=== PATIENT | female | born 1950 ===

== ENCOUNTER 2017-03-12 06:30 | Day surgery (SDC) | payer MEDICARE, MEDICAID ==
[2017-03-12 07:00] VITALS: BMI 41.5
[2017-03-12] MEDS ORDERED: Bupivacaine HCl 0.25% PF (10 ml) Inj ONE (07:55)
[2017-03-12] MEDS ORDERED: Propofol 10 mg/ml Inj (20 ML) ONE (07:56)
[2017-03-12] MEDS ORDERED: Lactated Ringer's 1,000 ML IV ONE (07:59)
[2017-03-12] MEDS ORDERED: Lidocaine 1% Inj (20ml) IJ ONE (08:06)
[2017-03-12] MEDS ORDERED: methylPREDNISolone Depo 80 mg/ml Inj IM ONE (08:06)
[2017-03-12] MEDS ORDERED: Iohexol 300 10 ML IJ ONE (08:06)
[2017-03-12] MEDS ORDERED: methylPREDNISolone Depo 80 mg/ml Inj ONE (08:12)
[2017-03-12] MEDS ORDERED: Iohexol 300 10 ML ONE (08:12)
[2017-03-12] MEDS ORDERED: Lidocaine 1% Inj (20ml) ONE (08:13)
[2017-03-12] MEDS ORDERED: Lactated Ringer's 1,000 ML IV SCH (08:16)
[2017-03-12] MEDS ORDERED: Lactated Ringer's 500 ML IV SCH (08:30)
[2017-03-12 09:38] VITALS: O2SAT 98
[2017-03-12 09:57] VITALS: RESP 18
[2017-03-12 12:48] VITALS: BP 118/76; PULSE 66; TEMP 97.4
--- NOTE | 2017-03-12 14:50 | OP ---
PROCEDURE DATE: 03/12/2017 PREOPERATIVE DIAGNOSIS: Lumbar radiculopathy. POSTOPERATIVE DIAGNOSIS: Lumbar radiculopathy. PROCEDURE: Caudal epidural under fluoroscopic guidance. COMPLICATIONS: None. EXPECTED BLOOD LOSS: None. SURGEON: Dr. Solares. ANESTHESIOLOGIST: Dr. Xie. TECHNIQUE: After informed consent was obtained, the patient was brought to the OR and placed on the table in prone position. All pressure points were padded and sedation was administered by anesthesia. The lumbosacral spine was prepped with iodine x 3 and draped in normal sterile fashion. X-ray was using AP and lateral views to identify the sacral hiatus. 1 mL of 1% lidocaine with a 25 gauge needle was used to create a skin wheal. A 17-gauge Tuohy epidural needle was advanced under AP and lateral views to marinelli the sacrococcygeal ligament. There was no paresthesia during placement of the needle. After negative aspiration for heme or CSF, 1 mL of Omnipaque 300 contrast was used to delineate the epidural space. After negative aspiration for heme or CSF, 20 mL of 0.5% lidocaine preservative free, and Depo-Medrol was easily instilled into the caudal epidural space. The patient was brought to stage 2 recovery room with bilateral lower extremity motor and sensory intact. She had stable vital signs. 80 mg of Depo-Medrol was used for the case. Edita Solares MD cc: [id number] TT: 03/12/2017 14:49:19 elham SORTO
--- NOTE | 2017-03-12 15:28 | RAD ---
PROCEDURE: Intraoperative Fluoroscopy. HISTORY: PAIN MANAGEMENT FINDINGS: Fluoroscopic assistance was provided for sacral epidural injection.
== END 2017-03-12 12:45 | disposition home or self-care (01) ==
LOC: H.OPSURG 06:30
PROVIDERS: ATTEND Anesthesiology Pain Medicine
DX: M54.16 Radiculopathy, lumbar region (principal); I10 Essential (primary) hypertension; E05.90 Thyrotoxicosis, unspecified without thyrotoxic crisis or storm
CPT/HCPCS: 62322; 82948; J1040; J1885; J2001; J2704; J7120; Q9967

== ENCOUNTER 2017-12-17 10:05 | Emergency (ER) | payer MEDICARE, OTHER ==
[2017-12-17 10:06] VITALS: BMI 41.5
[2017-12-17] MEDS ORDERED: Sodium Chloride 0.9% 1,000 ML IV STA (10:31)
[2017-12-17 11:39] LABS: BASO % 0.3 % (0.0-2.0); EOS # 0.1 K/uL (0.0-0.7); HEMOGLOBIN 14.3 g/dL (12.0-16.0); LYMPH # 0.7 K/uL (1.0-4.3); MEAN CELL VOLUME 87.3 fl (81.0-99.0); MEAN CORPUSCULAR HEMOGLOBIN 29.2 pg (27.0-31.0); MEAN CORPUSCULAR HGB CONC 33.5 g/dL (33.0-37.0); MEAN PLATELET VOLUME 9.1 fl (7.2-11.7); MONO # 0.6 K/uL (0.0-0.8); MONO % 7.7 % (0.0-10.0); NEUT # 6.3 K/uL (1.8-7.0); NRBC % 0.1 % (0.0-0.0); PLATELET COUNT 238 K/uL (130-400); RBC 4.87 Mil/uL (3.80-5.20); RED CELL DISTRIBUTION WIDTH 13.6 % (11.5-14.5); WHITE BLOOD COUNT 7.7 K/uL (4.8-10.8)
[2017-12-17 11:54] LABS: ALB/GLOB RATIO 1.2 (1.0-2.1); ALBUMIN 3.8 g/dL (3.5-5.0); ALT/SGPT 58 U/L (9-52); AST/SGOT 34 U/L (14-36); BLOOD UREA NITROGEN 22 mg/dl (7-17); CALCIUM 9.3 mg/dL (8.4-10.2); GFR AFRICAN-AMERICAN > 60; GFR NON-AFRICAN AMERICAN > 60; LIPASE 29 U/L (23-300)
[2017-12-17 12:09] LABS: BANDS 2 % (0-2); EOSINOPHIL 2 % (0-7); LYMPHOCYTE 7 % (20-50); MONOCYTE 5 % (0-10); NEUTROPHIL 84 % (42-75); PLATELET ESTIMATE NORMAL (NORMAL); TOTAL CELLS COUNTED 100
--- NOTE | 2017-12-17 12:15 | ED PDOC ---
HPI: General Adult Time Seen by Provider: 12/17/17 10:16 Chief Complaint (Nursing): Flu-like Symptoms Chief Complaint (Provider): flu like symptoms, abdominal pain History Per: Patient History/Exam Limitations: no limitations Onset/Duration Of Symptoms: Days (1) Current Symptoms Are (Timing): Still Present Severity: Moderate Additional Complaint(s): 67yo female c/o chills, malaise, headache, R sided abdominal pain, vomiting and diarrhea. Symptoms started yesterday at 1230pm, sudden. Denies receiving flu vaccine. Denies syncope, SOB, rash or urinary symptoms. Past Medical History Reviewed: Historical Data, Nursing Documentation Vital Signs: Last Vital Signs Temp 97.9 F 12/17/17 17:00 Pulse 75 12/17/17 17:00 Resp 14 12/17/17 17:00 BP 126/79 12/17/17 17:00 Pulse Ox 100 12/17/17 17:00 - Medical History PMH: Anxiety, Arthritis, Asthma, Back Problems (herniated disk), Bronchitis, Depression, HTN, Hypercholesterolemia, Hypothyroidism, Kidney Stones, Malignancy (ovarian ca), Migraine, Rheumatoid Arthritis Denies: Chronic Kidney Disease - Surgical History Surgical History: (x1) Other surgeries: hysterectomy/ ovarian ca - Family History Family History: States: Unknown Family Hx - Social History Current smoker - smoking cessation education provided: No - Home Medications Home Medications: Ambulatory Orders Medication Instructions Recorded Atenolol [Tenormin] 50 mg PO DAILY 05/04/15 Hydrochlorothiazide [HCTZ] 25 mg PO DAILY 05/04/15 Levothyroxine Sodium 150 mcg PO DAILY 05/04/15 [Levothyroxine] ALPRAZolam [Xanax] 1 mg PO BID 09/21/15 Ergocalciferol (Vitamin D2) 2,000 iu PO DAILY 09/21/15 [Vitamin D2] Gabapentin [Neurontin] 800 mg PO .4X 09/21/15 Montelukast [Singulair] 10 mg PO HS 09/21/15 Famotidine [Pepcid] 20 mg PO DAILY #10 tab 12/17/15 Albuterol 0.083% [Albuterol 3 ml IH Q8 #1 neb 10/29/16 Sulfate 3 Ml] Albuterol HFA [Ventolin HFA 90 2 puff IH Q4H PRN 03/12/17 mcg/actuation (8 g)] Celecoxib [celeBREX] 200 mg PO BID PRN 03/12/17 Escitalopram [Lexapro] 10 mg PO DAILY 03/12/17 Hydroxychloroquine Sulfate 200 mg PO BID 03/12/17 Omeprazole 40 mg PO DAILY 03/12/17 Tramadol HCl [Ultram] 50 mg PO TID PRN 03/12/17 amLODIPine [Norvasc] 2.5 mg PO DAILY 03/12/17 metFORMIN [glucOPHAGE] 500 mg PO DAILY 03/12/17 traZODone [trazODONE HYDROCHLORIDE] 50 mg PO HS 03/12/17 Ibuprofen [Motrin Tab] 600 mg PO Q6 PRN #15 tab 12/17/17 Oseltamivir [Tamiflu] 75 mg PO BID #10 cap 12/17/17 - Allergies Allergies/Adverse Reactions: Allergies Allergy/AdvReac Type Severity Reaction Status Date / Time shellfish derived Allergy ANAPHYLAXIS Verified 12/17/15 13:50 Review of Systems Constitutional: Positive for: Fever, Chills, Malaise ENT: Negative for: Nose Pain, Throat Pain, Throat Swelling Cardiovascular: Negative for: Chest Pain, Palpitations Respiratory: Positive for: Cough. Negative for: Shortness of Breath Gastrointestinal: Positive for: Nausea, Vomiting, Abdominal Pain Genitourinary Female: Negative for: Dysuria, Hematuria Musculoskeletal: Positive for: Back Pain, Other (myalgias). Negative for: Neck Pain, Arm Pain, Leg Pain Skin: Negative for: Rash, Lesions Neurological: Positive for: Headache, Dizziness. Negative for: Weakness, Numbness Physical Exam - Reviewed Nursing Documentation Reviewed: Yes Vital Signs Reviewed: Yes - Laboratory Results Result Diagrams: 12/17/17 11:29 12/17/17 11:29 - ECG O2 Sat by Pulse Oximetry: 95 - Progress Re-evaluation Time: 15:25 Condition: Improved Medical Decision Making Medical Decision Making: workup for flu like symptoms in setting of multiple medical problems and focal abd pain initiated Time: 1430 CT Abdomen and Pelvis FINDINGS: LOWER THORAX: Small hiatal hernia is appreciate with lung bases otherwise clear. LIVER: Hepatic steatosis is appreciated diffusely throughout the liver without focal mass or intrahepatic biliary dilatation appreciable. GALLBLADDER AND BILE DUCTS: Unremarkable. PANCREAS: Unremarkable. No gross lesion or ductal dilatation. SPLEEN: Unremarkable. ADRENALS: Unremarkable. No mass. KIDNEYS AND URETERS: Tiny lucency seen at the lower pole left kidney too small to characterize with 1 or 2 similar foci seen at the mid to lower pole right kidney as well. Both kidneys are otherwise unremarkable. VASCULATURE: Unremarkable. No aortic aneurysm. BOWEL: The bowel is not appear obstructed. Sigmoid diverticular changes are again identified with the sigmoid colon partially collapsed limiting evaluation of the wall. No pericolic right reaction is appreciated to suggest segmental colitis however the sigmoid colon appears somewhat thick-walled. While this could be a function of collapse, underlying lesion or even limited colitis not completely excluded. Clinically correlate further. APPENDIX: No acute findings related to the appendix. A small appendicular is seen near the tip once again. PERITONEUM: Unremarkable. No free fluid. No free air. LYMPH NODES: Unremarkable. No enlarged lymph nodes. BLADDER: Urinary bladder is collapsed. REPRODUCTIVE: Prior hysterectomy again suggested. BONES: No acute fracture. OTHER FINDINGS: None. IMPRESSION: 1. No CT sign to suggest appendicitis. 2. Hepatic steatosis. 3. Prior hysterectomy again evident. 4. The sigmoid colon is collapsed and colonic diverticular changes are reiterated. This renders evaluation of apparent thickening limited with underlying lesion or even limited colitis not excluded completely, although no pericolic reaction or fluid collection is related. Time: 1525 On reevaluation, patient improved however given age and symptoms, offered observation in hospital. Patient declines stating she feels better and wants to go home to her dogs. Tamiflu started empirically, and discussed risk/benefits of medication with patient. She has an appointment with clinic on Sunday. Will prescribe Motrin for bodyaches and headache. Patient stable for discharge home. Disposition - Clinical Impression Clinical Impression: Influenza-like symptoms, Abdominal pain in female patient - Patient ED Disposition Is Patient to be Admitted: No Counseled Patient/Family Regarding: Studies Performed, Diagnosis, Need For Followup, Rx Given - Disposition Referrals: [facility] [Outside] Disposition: Routine/Home Disposition Time: 15:30 Condition: IMPROVED Additional Instructions: Drink plenty of fluids. Take motrin 600mg every 6hours as needed for pain/headache. Return to ER for any worse or new symptoms. Start tamiflu 75mg 2x daily, next dose tonight. Prescriptions: Ibuprofen [Motrin Tab] 600 mg PO Q6 PRN #15 tab PRN Reason: Pain, Moderate (4-7) Oseltamivir [Tamiflu] 75 mg PO BID #10 cap Instructions: Flu, Adult (DC), Acute Abdomen (Belly Pain), Adult (DC), Headache , Adult (DC) Forms: [facility] (Haitian) Print Language: PORTUGUESE
[2017-12-17] MEDS ORDERED: Sodium Chloride 0.9% 100 ML ONE (13:12)
[2017-12-17] MEDS ORDERED: Iohexol 300 100 ML IJ ONE (13:12)
--- NOTE | 2017-12-17 14:22 | CT ---
PROCEDURE: CT Abdomen and Pelvis with contrast HISTORY: RLQ pain, vomiting, also hx ovarian cancer COMPARISON: Unenhanced abdomen pelvis CT examination 03/06/2015. TECHNIQUE: Contrast dose: Omnipaque 300, 95 cc Radiation dose: Total exam DLP = 1033.26 mGy-cm. This CT exam was performed using one or more of the following dose reduction techniques: Automated exposure control, adjustment of the mA and/or kV according to patient size, and/or use of iterative reconstruction technique. FINDINGS: LOWER THORAX: Small hiatal hernia is appreciate with lung bases otherwise clear. LIVER: Hepatic steatosis is appreciated diffusely throughout the liver without focal mass or intrahepatic biliary dilatation appreciable. GALLBLADDER AND BILE DUCTS: Unremarkable. PANCREAS: Unremarkable. No gross lesion or ductal dilatation. SPLEEN: Unremarkable. ADRENALS: Unremarkable. No mass. KIDNEYS AND URETERS: Tiny lucency seen at the lower pole left kidney too small to characterize with 1 or 2 similar foci seen at the mid to lower pole right kidney as well. Both kidneys are otherwise unremarkable. VASCULATURE: Unremarkable. No aortic aneurysm. BOWEL: The bowel is not appear obstructed. Sigmoid diverticular changes are again identified with the sigmoid colon partially collapsed limiting evaluation of the wall. No pericolic right reaction is appreciated to suggest segmental colitis however the sigmoid colon appears somewhat thick-walled. While this could be a function of collapse, underlying lesion or even limited colitis not completely excluded. Clinically correlate further. APPENDIX: No acute findings related to the appendix. A small appendicular is seen near the tip once again. PERITONEUM: Unremarkable. No free fluid. No free air. LYMPH NODES: Unremarkable. No enlarged lymph nodes. BLADDER: Urinary bladder is collapsed. REPRODUCTIVE: Prior hysterectomy again suggested. BONES: No acute fracture. OTHER FINDINGS: None. IMPRESSION: 1. No CT sign to suggest appendicitis. 2. Hepatic steatosis. 3. Prior hysterectomy again evident. 4. The sigmoid colon is collapsed and colonic diverticular changes are reiterated. This renders evaluation of apparent thickening limited with underlying lesion or even limited colitis not excluded completely, although no pericolic reaction or fluid collection is related.
[2017-12-17 17:34] VITALS: BP 126/79; PULSE 75; RESP 14; TEMP 97.9
[2017-12-19 14:23] VITALS: O2SAT 95
== END 2017-12-17 17:27 | disposition home or self-care (01) ==
LOC: H.ER 10:05
DX: J11.1 Influenza due to unidentified influenza virus with other respiratory manifestations (principal); E03.9 Hypothyroidism, unspecified; E78.00 Pure hypercholesterolemia, unspecified; F32.9 Major depressive disorder, single episode, unspecified; F41.9 Anxiety disorder, unspecified; I10 Essential (primary) hypertension; Z79.84 Long term (current) use of oral hypoglycemic drugs; Z85.43 Personal history of malignant neoplasm of ovary
CPT/HCPCS: 74177; 80053; 82948; 83690; 84484; 85025; 87804; 96374; 99283; J1885; J7040; Q9967

== ENCOUNTER 2018-03-25 12:00 | Emergency (ER) | payer MEDICARE, MEDICAID ==
[2018-03-25 12:09] VITALS: BMI 40.2
[2018-03-25] MEDS ORDERED: Albuterol-Ipratrop 3 mg / 0.5 (3 ml) UD INH STA (12:51)
--- NOTE | 2018-03-25 13:07 | ED PDOC ---
HPI: General Adult Time Seen by Provider: 03/25/18 12:23 Chief Complaint (Nursing): Chest Pain Chief Complaint (Provider): ABRAHAM, wheezing History Per: Patient History/Exam Limitations: no limitations Additional Complaint(s): Pt presents with multiple complaints. Pt c/o generalized ABRAHAM c/w her usual migraines. Also c/o having "cold" X 2 weeks, with cough and wheezing, last used Albuterol this AM, midsternal chest and back pain with cough and movement. Denies fever, nausea, vomiting, abdominal pain. Past Medical History Reviewed: Nursing Documentation, Vital Signs Vital Signs: Last Vital Signs Temp 97 F L 03/25/18 18:18 Pulse 78 03/25/18 18:18 Resp 19 03/25/18 18:18 BP 126/78 03/25/18 18:18 Pulse Ox 98 03/25/18 18:18 - Medical History PMH: Anxiety, Arthritis, Asthma, Back Problems (herniated disk), Bronchitis, Depression, HTN, Hypercholesterolemia, Hypothyroidism, Kidney Stones, Malignancy (ovarian ca), Migraine, Rheumatoid Arthritis Denies: Chronic Kidney Disease - Surgical History Surgical History: (x1) - Family History Family History: States: Unknown Family Hx - Living Arrangements Living Arrangements: With Family - Social History Current smoker - smoking cessation education provided: No - Home Medications Home Medications: Ambulatory Orders Medication Instructions Recorded Atenolol [Tenormin] 50 mg PO DAILY 05/04/15 Hydrochlorothiazide [HCTZ] 25 mg PO DAILY 05/04/15 Levothyroxine Sodium 150 mcg PO DAILY 05/04/15 [Levothyroxine] ALPRAZolam [Xanax] 1 mg PO BID 09/21/15 Ergocalciferol (Vitamin D2) 2,000 iu PO DAILY 09/21/15 [Vitamin D2] Gabapentin [Neurontin] 800 mg PO .4X 09/21/15 Montelukast [Singulair] 10 mg PO HS 09/21/15 Famotidine [Pepcid] 20 mg PO DAILY #10 tab 12/17/15 Albuterol 0.083% [Albuterol 3 ml IH Q8 #1 neb 10/29/16 Sulfate 3 Ml] Albuterol HFA [Ventolin HFA 90 2 puff IH Q4H PRN 03/12/17 mcg/actuation (8 g)] Celecoxib [celeBREX] 200 mg PO BID PRN 03/12/17 Escitalopram [Lexapro] 10 mg PO DAILY 03/12/17 Hydroxychloroquine Sulfate 200 mg PO BID 03/12/17 Omeprazole 40 mg PO DAILY 03/12/17 Tramadol HCl [Ultram] 50 mg PO TID PRN 03/12/17 amLODIPine [Norvasc] 2.5 mg PO DAILY 03/12/17 metFORMIN [glucOPHAGE] 500 mg PO DAILY 03/12/17 traZODone [trazODONE HYDROCHLORIDE] 50 mg PO HS 03/12/17 Ibuprofen [Motrin Tab] 600 mg PO Q6 PRN #15 tab 12/17/17 Oseltamivir [Tamiflu] 75 mg PO BID #10 cap 12/17/17 Albuterol HFA [Ventolin HFA 90 2 puff IH [id number] PRN #1 bottle 03/25/18 mcg/actuation (8 g)] Naproxen [Naprosyn] 500 mg PO BID PRN #15 tablet 03/25/18 Nitrofurantoin Macrocrystals 100 mg PO BID #13 cap 03/25/18 [Macrobid] Prednisone 50 mg PO DAILY #4 tab 03/25/18 - Allergies Allergies/Adverse Reactions: Allergies Allergy/AdvReac Type Severity Reaction Status Date / Time shellfish derived Allergy ANAPHYLAXIS Verified 12/17/15 13:50 Review of Systems Constitutional: Negative for: Fever, Chills Cardiovascular: Positive for: Chest Pain (Pleuritic). Negative for: Palpitations Respiratory: Positive for: Cough, Shortness of Breath, Pleuritic Pain, Wheezing. Negative for: Hemoptysis, SOB with Exertion, Sputum Gastrointestinal: Negative for: Nausea, Vomiting, Abdominal Pain, Diarrhea Genitourinary Female: Negative for: Dysuria, Hematuria Musculoskeletal: Positive for: Back Pain. Negative for: Neck Pain Skin: Negative for: Rash, Lesions Neurological: Positive for: Headache. Negative for: Weakness, Numbness, Incoordination, Change in Speech, Confusion, Seizures, Altered Mental Status, Dizziness Physical Exam - Reviewed Nursing Documentation Reviewed: Yes Vital Signs Reviewed: Yes - Physical Exam Appears: Positive for: Well, No Acute Distress (Speaking full sentences) Head Exam: Positive for: ATRAUMATIC, NORMAL INSPECTION Skin: Positive for: Normal Color, Warm, Dry Eye Exam: Positive for: Normal appearance, EOMI, PERRL Neck: Positive for: Normal, Painless ROM, Supple Cardiovascular/Chest: Positive for: Regular Rate, Rhythm. Negative for: Chest Non Tender (TTP midsternum) Respiratory: Positive for: Wheezing. Negative for: Decreased Breath Sounds, Accessory Muscle Use, Crackles, Rales, Rhonchi, Respiratory Distress Back: Positive for: Normal Inspection. 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 Negative for: Motor/Sensory Deficits, Facial Droop - Laboratory Results Result Diagrams: 03/25/18 13:35 03/25/18 13:35 - ECG O2 Sat by Pulse Oximetry: 97 Medical Decision Making Medical Decision Makin yo with migraine and wheezing. - labs - EKG - CXR - Albuterol/atrovent nebs - Solumedrol Accession No. : [id number] Patient Name / ID : CRISTI Perez / [id number] Exam Date : 03/25/2018 13:12:18 ( Approved ) Study Comment : Sex / Age : F / 68Y Creator : Richard Washington MD Dictator : Richard Washington MD [employer] Ambassador : Gill Box Operator : Richard Washington MD Approver2 : Report Date : 03/25/2018 14:47:32 My Comment : HISTORY: SOB COMPARISON: 12/28/2016 TECHNIQUE: Chest PA and lateral FINDINGS: LUNGS: No active pulmonary disease. PLEURA: No significant pleural effusion identified. No pneumothorax apparent. CARDIOVASCULAR: No radiographic findings to suggest acute or significant cardiovascular disease. OSSEOUS STRUCTURES: No significant abnormalities. VISUALIZED UPPER ABDOMEN: Normal. OTHER FINDINGS: None. IMPRESSION: No active disease. No significant interval change compared to the prior examination(s). Disposition - Clinical Impression Clinical Impression: UTI (urinary tract infection), Asthma exacerbation - Disposition Referrals: [facility] [place] [Outside] [facility] [Outside] Disposition: Routine/Home Disposition Time: 18:00 Condition: IMPROVED Prescriptions: Albuterol HFA [Ventolin HFA 90 mcg/actuation (8 g)] 2 puff IH [id number] PRN #1 bottle PRN Reason: Shortness Of Breath Naproxen [Naprosyn] 500 mg PO BID PRN #15 tablet PRN Reason: Pain, Moderate (4-7) Nitrofurantoin Macrocrystals [Macrobid] 100 mg PO BID #13 cap Prednisone 50 mg PO DAILY #4 tab Instructions: Urinary Tract Infections in Adults, Asthma in Adults Forms: [email or web address] (Lao)
[2018-03-25] MEDS ORDERED: Albuterol-Ipratrop 3 mg / 0.5 (3 ml) UD ONE (13:39)
[2018-03-25 13:54] LABS: BASO # 0.1 K/uL (0.0-0.2); BASO % 1.2 % (0.0-2.0); EOS # 0.7 K/uL (0.0-0.7); EOS % 6.9 % (0.0-4.0); LYMPH # 2.3 K/uL (1.0-4.3); LYMPH % 23.2 % (20.0-40.0); MEAN CELL VOLUME 87.4 fl (81.0-99.0); MEAN CORPUSCULAR HEMOGLOBIN 28.2 pg (27.0-31.0); MEAN CORPUSCULAR HGB CONC 32.2 g/dL (33.0-37.0); MEAN PLATELET VOLUME 9.8 fl (7.2-11.7); MONO # 0.7 K/uL (0.0-0.8); MONO % 6.8 % (0.0-10.0); NEUT # 6.2 K/uL (1.8-7.0); NEUT % 61.9 % (50.0-75.0); RBC 4.6 Mil/uL (3.80-5.20); RED CELL DISTRIBUTION WIDTH 13.9 % (11.5-14.5)
[2018-03-25 14:04] LABS: SQUAMOUS EPITHIAL 4 /hpf (0-5); URINE BACTERIA RARE (<OCC); URINE BILIRUBIN NEGATIVE (NEGATIVE); URINE BLOOD NEGATIVE (NEGATIVE); URINE CLARITY CLOUDY (Clear); URINE COLOR YELLOW (YELLOW); URINE GLUCOSE (UA) NEG (Normal); URINE LEUKOCYTE ESTERASE LARGE Leu/uL (Negative); URINE PROTEIN NEGATIVE (NEGATIVE); URINE UROBILINOGEN 0.2-1.0 mg/dL (0.2-1.0)
[2018-03-25 14:06] LABS: ALB/GLOB RATIO 1.2 (1.0-2.1); ALBUMIN 4.2 g/dL (3.5-5.0); ALT/SGPT 38 U/L (9-52); AST/SGOT 47 U/L (14-36); BLOOD UREA NITROGEN 16 mg/dl (7-17); GFR AFRICAN-AMERICAN > 60; GFR NON-AFRICAN AMERICAN > 60; PARTIAL THROMBOPLASTIN TIME 25.3 Seconds (25.6-37.1); PROTHROMBIN TIME 10.6 Seconds (9.8-13.1)
--- NOTE | 2018-03-25 14:49 | RAD ---
HISTORY: SOB COMPARISON: 12/28/2016 TECHNIQUE: Chest PA and lateral FINDINGS: LUNGS: No active pulmonary disease. PLEURA: No significant pleural effusion identified. No pneumothorax apparent. CARDIOVASCULAR: No radiographic findings to suggest acute or significant cardiovascular disease. OSSEOUS STRUCTURES: No significant abnormalities. VISUALIZED UPPER ABDOMEN: Normal. OTHER FINDINGS: None. IMPRESSION: No active disease. No significant interval change compared to the prior examination(s).
[2018-03-25 17:29] VITALS: RESP 19
[2018-03-25 18:19] VITALS: BP 126/78; PULSE 78; TEMP 97
--- NOTE | 2018-03-26 11:09 | CARD ---
APPROVED REPORT EKG Measurement Heart [id number] <Conclusion> Normal sinus rhythm Normal ECG
[2018-04-02 10:59] VITALS: O2SAT 97
== END 2018-03-25 18:20 | disposition home or self-care (01) ==
LOC: H.ER 12:00
DX: N39.0 Urinary tract infection, site not specified (principal); J45.901 Unspecified asthma with (acute) exacerbation; I10 Essential (primary) hypertension; Z79.84 Long term (current) use of oral hypoglycemic drugs; Z85.43 Personal history of malignant neoplasm of ovary; Z87.442 Personal history of urinary calculi; E03.9 Hypothyroidism, unspecified; Z86.59 Personal history of other mental and behavioral disorders; M06.9 Rheumatoid arthritis, unspecified; E78.00 Pure hypercholesterolemia, unspecified
CPT/HCPCS: 71046; 80053; 81003; 82948; 84484; 85025; 85610; 85730; 93005; 94640; 96374; 99283; J2930

== ENCOUNTER 2018-05-26 12:19 | Emergency (ER) | payer MEDICARE, OTHER ==
[2018-05-26 12:19] VITALS: BMI 40.2
[2018-05-26 12:39] VITALS: RESP 18
[2018-05-26] MEDS ORDERED: Albuterol-Ipratrop 3 mg / 0.5 (3 ml) UD IH STA ×2 (12:48→12:49)
[2018-05-26 12:49] VITALS: O2SAT 95
--- NOTE | 2018-05-26 12:57 | ED PDOC ---
HPI: SOB/CHF/COPD Time Seen by Provider: 05/26/18 12:39 Chief Complaint (Nursing): Shortness Of Breath Chief Complaint (Provider): Shortness Of Breath History Per: Patient History/Exam Limitations: no limitations Onset/Duration Of Symptoms: Days (14) Additional Complaint(s): 68 years old female with history of asthma presents to the ED for evaluation of shortness of breath, wheezing, productive cough with green sputum, chest tightness and subjective fever onset 2 weeks. PMD: non provided Past Medical History Reviewed: Historical Data, Nursing Documentation, Vital Signs Vital Signs: Last Vital Signs Temp 98.9 F 05/26/18 12:36 Pulse 71 05/26/18 12:45 Resp 18 05/26/18 12:45 BP 123/67 05/26/18 12:45 Pulse Ox 95 05/26/18 13:02 - Medical History PMH: Anxiety, Arthritis, Asthma, Back Problems (herniated disk), Bronchitis, Depression, HTN, Hypercholesterolemia, Hypothyroidism, Kidney Stones, Malignancy (ovarian ca), Migraine, Rheumatoid Arthritis Denies: Chronic Kidney Disease - Surgical History Surgical History: (x1) - Family History Family History: States: Unknown Family Hx - Social History Current smoker - smoking cessation education provided: No Alcohol: None Drugs: Denies - Home Medications Home Medications: Ambulatory Orders Medication Instructions Recorded Atenolol [Tenormin] 50 mg PO DAILY 05/04/15 Hydrochlorothiazide [HCTZ] 25 mg PO DAILY 05/04/15 Levothyroxine Sodium 150 mcg PO DAILY 05/04/15 [Levothyroxine] ALPRAZolam [Xanax] 1 mg PO BID 09/21/15 Ergocalciferol (Vitamin D2) 2,000 iu PO DAILY 09/21/15 [Vitamin D2] Gabapentin [Neurontin] 800 mg PO .4X 09/21/15 Montelukast [Singulair] 10 mg PO HS 09/21/15 Famotidine [Pepcid] 20 mg PO DAILY #10 tab 12/17/15 Albuterol 0.083% [Albuterol 3 ml IH Q8 #1 neb 10/29/16 Sulfate 3 Ml] Albuterol HFA [Ventolin HFA 90 2 puff IH Q4H PRN 03/12/17 mcg/actuation (8 g)] Celecoxib [celeBREX] 200 mg PO BID PRN 03/12/17 Escitalopram [Lexapro] 10 mg PO DAILY 03/12/17 Hydroxychloroquine Sulfate 200 mg PO BID 03/12/17 Omeprazole 40 mg PO DAILY 03/12/17 Tramadol HCl [Ultram] 50 mg PO TID PRN 03/12/17 amLODIPine [Norvasc] 2.5 mg PO DAILY 03/12/17 metFORMIN [glucOPHAGE] 500 mg PO DAILY 03/12/17 traZODone [trazODONE HYDROCHLORIDE] 50 mg PO HS 03/12/17 Ibuprofen [Motrin Tab] 600 mg PO Q6 PRN #15 tab 12/17/17 Oseltamivir [Tamiflu] 75 mg PO BID #10 cap 12/17/17 Albuterol HFA [Ventolin HFA 90 2 puff IH [id number] PRN #1 bottle 03/25/18 mcg/actuation (8 g)] Naproxen [Naprosyn] 500 mg PO BID PRN #15 tablet 03/25/18 Nitrofurantoin Macrocrystals 100 mg PO BID #13 cap 03/25/18 [Macrobid] Prednisone 50 mg PO DAILY #4 tab 03/25/18 Sulfamethoxazole/Trimethoprim 1 tab PO BID #20 tab 05/26/18 [Bactrim DS 800 mg-160 mg] - Allergies Allergies/Adverse Reactions: Allergies Allergy/AdvReac Type Severity Reaction Status Date / Time shellfish derived Allergy ANAPHYLAXIS Verified 12/17/15 13:50 Review of Systems ROS Statement: Except As Marked, All Systems Reviewed And Found Negative Constitutional: Positive for: Fever (subjective) Respiratory: Positive for: Cough, Shortness of Breath, Sputum (green), Wheezing Physical Exam - Reviewed Nursing Documentation Reviewed: Yes Vital Signs Reviewed: Yes - Physical Exam Appears: Positive for: Non-toxic, No Acute Distress Head Exam: Positive for: ATRAUMATIC, NORMOCEPHALIC Cardiovascular/Chest: Positive for: Regular Rate, Rhythm. Negative for: Murmur Respiratory: Positive for: Wheezing (Bilateral expiratory). Negative for: Respiratory Distress Gastrointestinal/Abdominal: Positive for: Normal Exam, Soft. Negative for: Tenderness Extremity: Positive for: Normal ROM. Negative for: Tenderness, Deformity, Swelling Neurologic/Psych: Positive for: Alert, Oriented (x3) - Laboratory Results Result Diagrams: 05/26/18 14:19 05/26/18 14:19 - ECG O2 Sat by Pulse Oximetry: 95 (RA) Pulse Ox Interpretation: Normal - Progress Re-evaluation Time: 14:38 Condition: Improved (wishes to go home) Medical Decision Making Medical Decision Making: Time: 1248 Initial Plan: --CMP --Urine dipstick --CBC --Chest X-Ray --Albuterol 3 ml IH --SOLU-Medrol 125 mg IVP --Peak Flow Pre/Post Tx Scribe Attestation: Documented by Keir Salazar, acting as a scribe for Yobani Cooley MD. Provider Scribe Attestation: All medical record entries made by the Scribe were at my direction and personally dictated by me. I have reviewed the chart and agree that the record accurately reflects my personal performance of the history, physical exam, medical decision making, and the department course for this patient. I have also personally directed, reviewed, and agree with the discharge instructions and disposition. Disposition - Clinical Impression Clinical Impression: Bronchitis, Asthma exacerbation, UTI (urinary tract infection) - Patient ED Disposition Is Patient to be Admitted: No Counseled Patient/Family Regarding: Studies Performed, Diagnosis, Need For Followup, Rx Given - Disposition Referrals: [facility] [Outside] Disposition: Routine/Home Disposition Time: 14:39 Condition: FAIR Prescriptions: Sulfamethoxazole/Trimethoprim [Bactrim DS 800 mg-160 mg] 1 tab PO BID #20 tab Instructions: Asthma, Adult (DC), Acute Bronchitis, Adult (DC), Urinary Tract Infections in Adults Forms: [employer] (Lithuanian)
--- NOTE | 2018-05-26 14:11 | RAD ---
Date of service: 05/26/2018 HISTORY: Cough COMPARISON: Chest 03/25/2018 TECHNIQUE: Chest PA and lateral FINDINGS: LUNGS: Mild bibasilar atelectasis left greater than right ; developing left lower lobe infiltrate could be excluded with followup radiographs. PLEURA: No significant pleural effusion identified. No pneumothorax apparent. CARDIOVASCULAR: Normal. OSSEOUS STRUCTURES: Mild multilevel degenerative spondylosis of the thoracic spine VISUALIZED UPPER ABDOMEN: Normal. OTHER FINDINGS: None. IMPRESSION: Mild bibasilar atelectasis left greater than right; developing left lower lobe infiltrate could be excluded with followup radiographs
[2018-05-26 14:22] LABS: BASO # 0.1 K/uL (0.0-0.2); BASO % 0.9 % (0.0-2.0); EOS # 0.6 K/uL (0.0-0.7); EOS % 7.4 % (0.0-4.0); HEMOGLOBIN 13.2 g/dL (12.0-16.0); LYMPH # 2.1 K/uL (1.0-4.3); LYMPH % 24.4 % (20.0-40.0); MEAN CELL VOLUME 87.6 fl (81.0-99.0); MEAN CORPUSCULAR HEMOGLOBIN 28.5 pg (27.0-31.0); MEAN CORPUSCULAR HGB CONC 32.5 g/dL (33.0-37.0); MEAN PLATELET VOLUME 10.2 fl (7.2-11.7); MONO # 0.7 K/uL (0.0-0.8); MONO % 8.6 % (0.0-10.0); NEUT # 5.1 K/uL (1.8-7.0); NEUT % 58.7 % (50.0-75.0); NRBC % 0.1 % (0.0-0.0); RBC 4.64 Mil/uL (3.80-5.20); RED CELL DISTRIBUTION WIDTH 15.4 % (11.5-14.5); WHITE BLOOD COUNT 8.7 K/uL (4.8-10.8)
[2018-05-26 14:32] LABS: ALB/GLOB RATIO 1.3 (1.0-2.1); ALBUMIN 4.2 g/dL (3.5-5.0); ALT/SGPT 32 U/L (9-52); AST/SGOT 35 U/L (14-36); BLOOD UREA NITROGEN 18 mg/dl (7-17); CALCIUM 10.2 mg/dL (8.4-10.2); GFR NON-AFRICAN AMERICAN > 60
[2018-05-26 14:59] VITALS: BP 120/72; PULSE 69; TEMP 97.7
== END 2018-05-26 14:58 | disposition home or self-care (01) ==
LOC: H.ER 12:19
DX: J45.901 Unspecified asthma with (acute) exacerbation (principal); J40 Bronchitis, not specified as acute or chronic; N39.0 Urinary tract infection, site not specified; Z79.84 Long term (current) use of oral hypoglycemic drugs; Z85.43 Personal history of malignant neoplasm of ovary; I10 Essential (primary) hypertension; E03.9 Hypothyroidism, unspecified; E78.00 Pure hypercholesterolemia, unspecified
CPT/HCPCS: 71046; 80053; 85025; 87086; 96374; 99285; J2930

== ENCOUNTER 2018-08-12 07:39 | Day surgery (SDC) | payer MEDICARE, OTHER ==
[2018-08-12] MEDS ORDERED: Lactated Ringer's 500 ML IV ONE (08:19)
[2018-08-12 08:26] VITALS: TEMP 96.9
[2018-08-12] MEDS ORDERED: Propofol 10 mg/ml Inj (20 ML) ONE (10:44)
[2018-08-12 11:21] VITALS: BP 121/71; PULSE 60; RESP 21; O2SAT 99
== END 2018-08-12 12:35 | disposition home or self-care (01) ==
LOC: H.ENDO 07:39
PROVIDERS: ATTEND Internal Medicine Gastroenterology
DX: K57.30 Diverticulosis of large intestine without perforation or abscess without bleeding (principal); R93.3 Abnormal findings on diagnostic imaging of other parts of digestive tract
CPT/HCPCS: 45378; 82948; J2001; J2704; J7120

== ENCOUNTER 2018-08-17 09:28 | Emergency (ER) | payer MEDICARE, OTHER ==
[2018-08-17 09:28] VITALS: BMI 40.2
[2018-08-17] MEDS ORDERED: Albuterol-Ipratrop 3 mg / 0.5 (3 ml) UD INH STA (09:56)
[2018-08-17] MEDS ORDERED: Sodium Chloride 0.9% 1,000 ML IV STA (09:56)
--- NOTE | 2018-08-17 10:01 | ED PDOC ---
HPI: SOB/CHF/COPD Time Seen by Provider: 08/17/18 09:54 Chief Complaint (Nursing): Shortness Of Breath Chief Complaint (Provider): headache, wheezing History Per: Patient Additional Complaint(s): 68-year-old female with history of asthma presents with wheezing and cough for 1 week. Patient states symptoms worsened in the past couple of days prompting visit today. Patient has also not taken her daily Advair inhaler in the past 3 days. She states she is waiting for her primary doctor to renew the prescription. Patient's denies any fever. She states that she has woken up for the past few days with headache and sinus pressure. Patient denies any known sick contacts and denies recent travel. PMD: Dr. Gui Puentes Past Medical History Reviewed: Historical Data, Nursing Documentation, Vital Signs Vital Signs: Last Vital Signs Temp 97.6 F 08/17/18 09:38 Pulse 73 08/17/18 09:38 Resp 20 08/17/18 09:38 BP 112/50 L 08/17/18 09:38 Pulse Ox 97 08/17/18 09:38 - Medical History PMH: Anxiety, Arthritis, Asthma (LAST ATTACK 6 MONTHS AGO), Back Problems (herniated disk), Depression, Diabetes, HTN, Hypercholesterolemia, Hypothyroidism, Kidney Stones, Malignancy (ovarian ca), Migraine, Rheumatoid Arthritis - Surgical History Surgical History: (x1) - Family History Family History: States: No Known Family Hx - Living Arrangements Living Arrangements: With Family - Social History Current smoker - smoking cessation education provided: No Alcohol: None Drugs: Denies - Home Medications Home Medications: Ambulatory Orders Medication Instructions Recorded ALPRAZolam [Xanax] 1 mg PO BID 08/12/18 Albuterol 0.5% [Albuterol 0.5% 1 puff INH PRN PRN 08/12/18 Inhal Chiquis (5 mg/ ml) 20 ml] Atenolol [Tenormin] 50 mg PO DAILY 08/12/18 Fluticasone/Salmeterol 250/50 1 puff INH BID 08/12/18 [Advair Diskus 250/50] Hydrochlorothiazide [Microzide] 25 mg PO DAILY 08/12/18 Levothyroxine [Synthroid] 150 mcg PO DAILY 08/12/18 metFORMIN [glucOPHAGE] 1 tab PO BID 08/12/18 traZODone [trazODONE HYDROCHLORIDE] 50 mg PO HS 08/12/18 Albuterol 0.042% [Albuterol 0.042% 3 ml IH Q4 PRN #60 ml 08/17/18 Inhal Chiquis (1.25mg/3ml) UD] Prednisone 50 mg PO DAILY #6 tablet 08/17/18 - Allergies Allergies/Adverse Reactions: Allergies Allergy/AdvReac Type Severity Reaction Status Date / Time shellfish derived Allergy Severe ANAPHYLAXIS Verified 08/12/18 08:10 Curb-65 Severity Score - CURB-65 Severity Score Confusion: No Bun >19mg/dl (>7mmol/L): No Respiratory Rate greater than/equal to 30: No Systolic BP <90 or Diastolic BP less than/equal 60mmHg: No Age >64: No Curb-65 Score: 0 Percentage 30-day mortality: 0.6% Wells Criteria for PE - Wells Criteria for Pulmonary Embolism Clinical Signs and Symptoms of DVT: No P.E is #1 Diagnosis, or Equally Likely: No Heart Rate >100: No Immobilization at least 3 days;Surgery previous 4 weeks: No Previous, objectively diagnosed PE or DVT: No Hemoptysis: No Malignancy w/treatment within 6 months, or palliative: No Total Score: 0 Review of Systems ROS Statement: Except As Marked, All Systems Reviewed And Found Negative Constitutional: Negative for: Fever, Chills, Weakness Cardiovascular: Negative for: Chest Pain Respiratory: Positive for: Cough, Shortness of Breath, SOB with Exertion, Wheezing Gastrointestinal: Negative for: Nausea, Vomiting, Abdominal Pain Physical Exam - Reviewed Nursing Documentation Reviewed: Yes Vital Signs Reviewed: Yes - Physical Exam Appears: Positive for: Well, Non-toxic, No Acute Distress Skin: Positive for: Normal Color. Negative for: Rash Eye Exam: Positive for: Normal appearance Cardiovascular/Chest: Positive for: Regular Rate, Rhythm Respiratory: Positive for: Wheezing (Bilateral inspiratory and expiratory wheezing). Negative for: Crackles, Rales, Rhonchi, Respiratory Distress Extremity: Positive for: Normal ROM Neurologic/Psych: Positive for: Alert, Oriented - Laboratory Results Result Diagrams: 08/17/18 10:27 08/17/18 10:27 - ECG Interpretation Of ECG: Normal sinus rhythm 62 bpm no acute finding, reviewed by PA and ED attending. O2 Sat by Pulse Oximetry: 97 Pulse Ox Interpretation: Normal - Other Rad CXR X-Ray: Interpreted by Me, Viewed By Me X-Ray Interpretation: no acute finding Nebulizer Treatments/Peak Flow - Duonebs Number of Bronchodilator Doses given?: 3 (duoneb) - Pre/Post Peak Flow Pre Treatment Peak Flow: 250 Post treatment Peak Flow: 375 - Steroid Treatment Steroid: IV (125 mg IV solumedrol) - Clinical Response Clinical Response: Improved Medical Decision Making Medical Decision Makin68 y/o with wheezing and headache Plan: CBC CMP Troponin BNP EKG CXR IVF IV toradol PO tylenol Duoneb x 3 125 mg IV solumedrol She states that wheezing has resolved. She also states that headache has resolved. Patient is aware of diagnostic testing results. All questions answered. Prescription given for albuterol solution for nebulizer machine as well as prednisone. Patient has Advair and albuterol pump inhaler at home already. Bystander states for headache as needed, fluids, rest and PMD follow-up in 2-3 days. Disposition - Clinical Impression Clinical Impression: Asthma exacerbation - Patient ED Disposition Is Patient to be Admitted: No Counseled Patient/Family Regarding: Studies Performed, Diagnosis, Need For Followup, Rx Given - Disposition Referrals: Gui Puentes MD [Family Provider] - Disposition: Routine/Home Disposition Time: 11:48 Condition: STABLE Additional Instructions: Take prescription meds as directed. [id number] Tylenol or Advil for headache as needed. Rest and drink plenty of fluids. Follow-up with primary doctor on Sunday. Prescriptions: Albuterol 0.042% [Albuterol 0.042% Inhal Chiquis (1.25mg/3ml) UD] 3 ml IH Q4 PRN #60 ml PRN Reason: Wheezing Prednisone 50 mg PO DAILY #6 tablet Instructions: Asthma, Adult (DC) Forms: [facility] (Yemeni) Results - Lab Results Lab Results: 08/17/18 08/17/18 10:27 10:27 WBC 7.8 RBC 5.00 Hgb 14.1 Hct 44.1 MCV 88.3 MCH 28.3 MCHC 32.0 L RDW 14.8 H Plt Count 258 MPV 9.8 Neut % (Auto) 56.3 Lymph % (Auto) 24.1 Benzie % (Auto) 9.1 Eos % (Auto) 9.7 H Baso % (Auto) 0.8 Neut # (Auto) 4.4 Lymph # (Auto) 1.9 Benzie # (Auto) 0.7 Eos # (Auto) 0.8 H Baso # (Auto) 0.1 Sodium 139 Potassium 3.2 L Chloride 104 Carbon Dioxide 26 Anion Gap 12 BUN 21 H Creatinine 0.6 L Est GFR ( Amer) > 60 Est GFR (Non-Af Amer) > 60 Random Glucose 110 H Calcium 9.8 Total Bilirubin 0.9 AST 28 ALT 33 Alkaline Phosphatase 54 Troponin I < 0.0120 NT-Pro-B Natriuret Pep 78.2 Total Protein 7.9 Albumin 4.4 Globulin 3.5 Albumin/Globulin Ratio 1.3
[2018-08-17] MEDS ORDERED: Albuterol-Ipratrop 3 mg / 0.5 (3 ml) UD ONE (10:16)
[2018-08-17 10:33] LABS: BASO # 0.1 K/uL (0.0-0.2); BASO % 0.8 % (0.0-2.0); EOS # 0.8 K/uL (0.0-0.7); EOS % 9.7 % (0.0-4.0); HEMOGLOBIN 14.1 g/dL (12.0-16.0); LYMPH # 1.9 K/uL (1.0-4.3); LYMPH % 24.1 % (20.0-40.0); MEAN CELL VOLUME 88.3 fl (81.0-99.0); MEAN CORPUSCULAR HEMOGLOBIN 28.3 pg (27.0-31.0); MEAN PLATELET VOLUME 9.8 fl (7.2-11.7); MONO # 0.7 K/uL (0.0-0.8); MONO % 9.1 % (0.0-10.0); NEUT # 4.4 K/uL (1.8-7.0); NEUT % 56.3 % (50.0-75.0); NRBC % 0.1 % (0.0-0.0); RED CELL DISTRIBUTION WIDTH 14.8 % (11.5-14.5); WHITE BLOOD COUNT 7.8 K/uL (4.8-10.8)
[2018-08-17 10:57] LABS: ALB/GLOB RATIO 1.3 (1.0-2.1); ALBUMIN 4.4 g/dL (3.5-5.0); ALT/SGPT 33 U/L (9-52); AST/SGOT 28 U/L (14-36); BLOOD UREA NITROGEN 21 mg/dl (7-17); CALCIUM 9.8 mg/dL (8.4-10.2); GFR NON-AFRICAN AMERICAN > 60
[2018-08-17 11:09] LABS: B-TYPE NATRIURETIC PEPTIDE 78.2 pg/ml (0-900)
[2018-08-17] MEDS ORDERED: Potassium Chloride 20 mEq ER Tab PO STA (11:19)
[2018-08-17] MEDS ORDERED: Potassium Chloride 20 mEq ER Tab PO ONE (11:31)
[2018-08-17 12:04] VITALS: BP 128/78; PULSE 78; RESP 19; TEMP 97; O2SAT 97
--- NOTE | 2018-08-17 16:14 | RAD ---
Date of service: 08/17/2018 HISTORY: cough, wheezing COMPARISON: Chest radiographs 05/26/2018. FINDINGS: LUNGS: No alveolitis bilaterally. Questionable faint nodule mid right lung zone laterally. This is not seen in prior distant chest CT 12/08/2011 and follow-up chest CT without contrast is advised for added characterization of this region. PLEURA: No significant pleural effusion identified, no pneumothorax apparent. CARDIOVASCULAR: No aortic atherosclerotic calcification present. Normal cardiac size. No pulmonary vascular congestion. OSSEOUS STRUCTURES: No significant abnormalities. VISUALIZED UPPER ABDOMEN: Normal. OTHER FINDINGS: None. IMPRESSION: Questionable nodule mid right lung zone laterally. Follow-up chest is advised without contrast for added characterization here. Otherwise, no additional interval findings bilaterally. No pulmonary vascular congestion.
--- NOTE | 2018-08-17 22:50 | CARD ---
APPROVED REPORT Date of service: 08/17/2018 EKG Measurement Heart [id number] [id number] <Conclusion> Normal sinus rhythm Poor R wave progression Suspect lead malposition Abnormal ECG
== END 2018-08-17 12:04 | disposition home or self-care (01) ==
LOC: H.ER 09:28
DX: J45.901 Unspecified asthma with (acute) exacerbation (principal); J44.9 Chronic obstructive pulmonary disease, unspecified; E11.9 Type 2 diabetes mellitus without complications; I10 Essential (primary) hypertension; Z79.84 Long term (current) use of oral hypoglycemic drugs; Z79.899 Other long term (current) drug therapy; Z85.43 Personal history of malignant neoplasm of ovary; Z87.442 Personal history of urinary calculi
CPT/HCPCS: 71045; 80053; 83880; 84484; 85025; 93005; 96374; 99283; J1885; J2930; J7030

== ENCOUNTER 2019-02-13 14:25 | Emergency (ER) | payer MEDICARE, OTHER ==
[2019-02-13 14:25] VITALS: BMI 40.2
[2019-02-13 14:38] VITALS: RESP 18
[2019-02-13] MEDS ORDERED: Albuterol-Ipratrop 3 mg / 0.5 (3 ml) UD INH STA ×2 (15:12→17:35)
[2019-02-13] MEDS ORDERED: Albuterol-Ipratrop 3 mg / 0.5 (3 ml) UD ONE ×2 (15:30→17:22)
[2019-02-13 15:56] LABS: BASO # 0.1 K/uL (0.0-0.2); BASO % 1.2 % (0.0-2.0); EOS # 0.5 K/uL (0.0-0.7); EOS % 4.6 % (0.0-4.0); HEMOGLOBIN 14.3 g/dL (12.0-16.0); LYMPH # 2.3 K/uL (1.0-4.3); LYMPH % 22.7 % (20.0-40.0); MEAN CELL VOLUME 86.1 fl (81.0-99.0); MEAN CORPUSCULAR HEMOGLOBIN 27.8 pg (27.0-31.0); MEAN CORPUSCULAR HGB CONC 32.3 g/dL (33.0-37.0); MEAN PLATELET VOLUME 9.6 fl (7.2-11.7); MONO # 0.7 K/uL (0.0-0.8); MONO % 7.1 % (0.0-10.0); NEUT # 6.4 K/uL (1.8-7.0); NEUT % 64.4 % (50.0-75.0); NRBC % 0.1 % (0.0-0.0); RBC 5.12 Mil/uL (3.80-5.20); RED CELL DISTRIBUTION WIDTH 14.9 % (11.5-14.5); WHITE BLOOD COUNT 9.9 K/uL (4.8-10.8)
[2019-02-13 16:05] LABS: ALB/GLOB RATIO 1.3 (1.0-2.1); ALBUMIN 4.8 g/dL (3.5-5.0); ALT/SGPT 34 U/L (9-52); AST/SGOT 38 U/L (14-36); BLOOD UREA NITROGEN 30 mg/dl (7-17); GFR NON-AFRICAN AMERICAN > 60
[2019-02-13 16:09] LABS: B-TYPE NATRIURETIC PEPTIDE 29.6 pg/ml (0-900)
--- NOTE | 2019-02-13 16:41 | RAD ---
Date of service: 02/13/2019 HISTORY: chest pain/ r/o infiltrate COMPARISON: Comparison is made with 09/18/2018 TECHNIQUE: Chest PA and lateral views FINDINGS: LUNGS: No active pulmonary disease. PLEURA: No significant pleural effusion identified. No pneumothorax apparent. CARDIOVASCULAR: No aortic atherosclerotic calcification present. Normal cardiac size. No pulmonary vascular congestion. OSSEOUS STRUCTURES: No significant abnormalities. VISUALIZED UPPER ABDOMEN: Normal. OTHER FINDINGS: None. IMPRESSION: No active disease.
--- NOTE | 2019-02-13 16:53 | ED PDOC ---
HPI: Asthma Time Seen by Provider: 02/13/19 15:09 Chief Complaint (Nursing): Cough, Cold, Congestion Chief Complaint (Provider): Cough, Shortness of Breath, Weakness History Per: Patient History/Exam Limitations: no limitations Onset/Duration Of Symptoms: Days (x2 weeks) Current Symptoms Are (Timing): Still Present Additional Complaint(s): 69 year old female presents to ED for evaluation of cough, shortness of breath, wheezing, and generalized weakness for the past two weeks which is consistent with prior asthma exacerbations. Patient has been using her Advair and Albuterol at home without relief. Otherwise, denies fever, swelling of extremities, and orthopnea. Patient is a non-smoker. Past Medical History Reviewed: Historical Data, Nursing Documentation, Vital Signs Vital Signs: Last Vital Signs Temp 98.5 F 02/13/19 14:36 Pulse 73 02/13/19 14:36 Resp 18 02/13/19 14:36 BP 122/85 02/13/19 14:36 Pulse Ox 96 02/13/19 14:36 - Medical History PMH: Anxiety, Arthritis, Asthma (LAST ATTACK 6 MONTHS AGO), Back Problems (herniated disk), Depression, Diabetes, HTN, Hypercholesterolemia, Hypothyroidism, Kidney Stones, Malignancy (ovarian ca), Migraine, Rheumatoid Arthritis Denies: Chronic Kidney Disease - Surgical History Surgical History: (x1) - Family History Family History: States: Unknown Family Hx - Social History Current smoker - smoking cessation education provided: No Alcohol: None Drugs: Denies - Immunization History Hx Tetanus Toxoid Vaccination: No Hx Influenza Vaccination: Yes Hx Pneumococcal Vaccination: No - Home Medications Home Medications: Ambulatory Orders Medication Instructions Recorded ALPRAZolam [Xanax] 1 mg PO BID 08/12/18 Albuterol 0.5% [Albuterol 0.5% 1 puff INH PRN PRN 08/12/18 Inhal Chiquis (5 mg/ ml) 20 ml] Atenolol [Tenormin] 50 mg PO DAILY 08/12/18 Fluticasone/Salmeterol 250/50 1 puff INH BID 08/12/18 [Advair Diskus 250/50] Hydrochlorothiazide [Microzide] 25 mg PO DAILY 08/12/18 Levothyroxine [Synthroid] 150 mcg PO DAILY 08/12/18 metFORMIN [glucOPHAGE] 1 tab PO BID 08/12/18 traZODone [trazODONE HYDROCHLORIDE] 50 mg PO HS 08/12/18 Albuterol 0.042% [Albuterol 0.042% 3 ml IH Q4 PRN #60 ml 08/17/18 Inhal Chiquis (1.25mg/3ml) UD] Prednisone 50 mg PO DAILY #6 tablet 08/17/18 Albuterol 0.083% [Albuterol 0.083% 2.5 mg IH Q4 PRN #20 neb 02/13/19 Inhal Chiquis (2.5 mg/3 ml) UD] Prednisone 50 mg PO DAILY #4 tab 02/13/19 - Allergies Allergies/Adverse Reactions: Allergies Allergy/AdvReac Type Severity Reaction Status Date / Time shellfish derived Allergy Severe ANAPHYLAXIS Verified 02/13/19 14:38 Review of Systems ROS Statement: Except As Marked, All Systems Reviewed And Found Negative Constitutional: Positive for: Weakness (generalized). Negative for: Fever Respiratory: Positive for: Cough, Shortness of Breath, Wheezing. Negative for: Hemoptysis, Other (orthopnea) Musculoskeletal: Negative for: Other (swelling of extremities) Physical Exam - Reviewed Nursing Documentation Reviewed: Yes Vital Signs Reviewed: Yes - Physical Exam Appears: Positive for: No Acute Distress Head Exam: Positive for: ATRAUMATIC, NORMAL INSPECTION, NORMOCEPHALIC Skin: Positive for: Normal Color, Warm, DRY Eye Exam: Positive for: EOMI, Normal appearance, PERRL ENT: Positive for: Normal ENT Inspection Neck: Positive for: Normal, Painless ROM, Supple Cardiovascular/Chest: Positive for: Regular Rate, Rhythm Respiratory: Positive for: Wheezing (bilateral), Other (patient moving good air). Negative for: Respiratory Distress Gastrointestinal/Abdominal: Positive for: Normal Exam, Soft. Negative for: Tenderness Back: Positive for: Normal Inspection Extremity: Positive for: Normal ROM (all extremities) Neurological/Psych: Positive for: Awake, Alert, Oriented (x3). Negative for: Motor/Sensory Deficits - Laboratory Results Result Diagrams: 02/13/19 15:41 02/13/19 15:41 Lab Results: Troponin I < 0.0120 ng/mL (0.00-0.120) 02/13/19 15:41 NT-Pro-B Natriuret Pep 29.6 pg/ml (0-900) 02/13/19 15:41 Total Bilirubin 0.6 mg/dl (0.2-1.3) 02/13/19 15:41 AST 38 U/L (14-36) H D 02/13/19 15:41 ALT 34 U/L (9-52) 02/13/19 15:41 Alkaline Phosphatase 65 U/L (38-126) 02/13/19 15:41 Total Protein 8.3 G/DL (6.3-8.2) H 02/13/19 15:41 Albumin 4.8 g/dL (3.5-5.0) 02/13/19 15:41 Globulin 3.5 gm/dL (2.2-3.9) 02/13/19 15:41 Albumin/Globulin Ratio 1.3 (1.0-2.1) 02/13/19 15:41 - ECG O2 Sat by Pulse Oximetry: 96 (RA) Pulse Ox Interpretation: Normal Medical Decision Making Medical Decision Making: Time: 1511 Initial Impression: workup for asthma exacerbation, r/o pneumonia Initial Plan: --BNP --CMP --Magnesium chemistry --Trop I --CBC with differential --CXR --Duoneb 3ml INH --Patient counseled on potential irregularity of sugar and given SOLU-medrol 125mg IVP --Peak flow pre/post --Reevaluation and likely discharge is symptoms improve CXR reviewed by me as no acute infiltrate. pt required mag 2gm but marked improvement thereafter. Wanted to go home to attend to dog. Rx prednisone and has albuterol at home Normal pulse on and resp effort on re-eval prior to DC approx 7p - Scribe Attestation: Documented by Jessy Cameron, acting as a scribe for Song Hazel III, DO. Provider Scribe Attestation: All medical record entries made by the Scribe were at my direction and personal ly dictated by me. I have reviewed the chart and agree that the record accurately reflects my personal performance of the history, physical exam, medical decision making, and the department course for this patient. I have also personally directed, reviewed, and agree with the discharge instructions and disposition. Disposition - Clinical Impression Clinical Impression: Asthma exacerbation - Patient ED Disposition Is Patient to be Admitted: No Counseled Patient/Family Regarding: Studies Performed, Diagnosis, Need For Followup, Rx Given - Disposition Referrals: Gui Puentes MD [Family Provider] - Disposition: Routine/Home Disposition Time: 18:55 Condition: STABLE Additional Instructions: Drink plenty of fluids, monitor your sugars closely when taking prednisone, return to ER for any difficulty breathing. Prescriptions: Albuterol 0.083% [Albuterol 0.083% Inhal Chiquis (2.5 mg/3 ml) UD] 2.5 mg IH Q4 PRN #20 neb PRN Reason: Wheezing Prednisone 50 mg PO DAILY #4 tab Instructions: Asthma, Adult (DC), Avoiding Asthma Triggers Forms: [facility] [facility] (Bhutanese)
[2019-02-13] MEDS ORDERED: Magnesium Sulfate 2 gm/50 ml 2 GM/50 ML BAG IVPB ONE (17:35)
[2019-02-13] MEDS ORDERED: Magnesium Sulfate 2 gm/50 ml 2 GM/50 ML BAG ONE (17:46)
[2019-02-13 19:31] VITALS: BP 116/62; PULSE 80; TEMP 97.8; O2SAT 98
== END 2019-02-13 19:25 | disposition home or self-care (01) ==
LOC: H.ER 14:25
DX: J45.901 Unspecified asthma with (acute) exacerbation (principal); E11.9 Type 2 diabetes mellitus without complications; Z79.84 Long term (current) use of oral hypoglycemic drugs
CPT/HCPCS: 71046; 80053; 83735; 83880; 84484; 85025; 94640; 96365; 96375; 99282; J2930